=== PATIENT | male | born 1950 | race Caucasian/White ===

== ENCOUNTER 2017-04-25 09:18 | Day surgery (SDC) | payer MEDICARE ==
--- NOTE | 2017-04-25 07:01 | History and Physical Report ---
DATE: 04/24/2017. CHIEF COMPLAINT AND HISTORY OF CHIEF COMPLAINT: This is a patient with a postcervical laminectomy radiculitis. She has a spinal opioid infusion system infusing hydromorphone. The current base rate is 1.5 mg a day. The pump at the right posterior gluteal margin was identified, and the incisional site is intact. Over the last number of refills and reprogrammings, battery depletion has been identified. He is here for battery replacement on an outpatient basis. No infusion characteristic changes will be made. PAST MEDICAL HISTORY: Cardiovascular disease, urologic disease, hypertension. MEDICATIONS ON ADMISSION: To be provided. ALLERGIES: To be provided. REVIEW OF SYSTEMS: The patient is appropriate and in no acute distress. The remainder of the systems review is noncontributory. PHYSICAL EXAMINATION: General: Height and weight are unavailable. Vital Signs: Unavailable. HEENT: Within normal limits. Lungs: Coarse and rhonchitic. Heart: Rapid. Musculoskeletal: Examination of the musculoskeletal system shows the pump pouch in the right posterior gluteal margin. The incisional site is intact. There is no breakdown or cellulitis. Lower extremity functionality and upper extremity functionality shows the underlying pain pattern to be a cervical radicular element showing both sensory and motor changes to the bilateral upper extremities. No current lower extremity complaints. Neurologic: Cranial nerves are intact. IMPRESSION: 1. POSTCERVICAL LAMINECTOMY SYNDROME, ICD-10 CODE M96.1. 2. CERVICAL RADICULITIS, ICD-10 CODE M54.13. 3. IMPLANTED SPINAL INFUSION SYSTEM WITH HYDROMORPHONE, BATTERY DEPLETION. PLAN: The patient is here on an outpatient basis for a pump battery change. This will be an outpatient procedure, and we will make no infusion changes. The catheter will be kept intact, although we may modify the catheter within the pump pouch if necessary. All of the potential risks, side effects, and complications have been reviewed and discussed. JOB NUMBER: [id number] cc: Ivory Packer
[~2017-04-25 09:18] MED LIST: ACETAMINOPHEN 1,000 MG/100 ML BTL IV ONE; CEFAZOLIN 2 Gram 2 GM/50 ML BAG IVPB ONE; FAMOTIDINE 20MG TABLET PO ONE; HYDROMORPHONE HCL 0.6 GM in 0.9 % SODIUM CHLORIDE 10ML VIA 20 ML IV ONE; HYDROMORPHONE PF 2MG/ML AMP 0.004 MG in 0.9 % SODIUM CHLORIDE 10ML VIA 0.998 ML IV ONE; MECLIZINE 25 MG TABLET PO ONE; METOCLOPRAMIDE 10 MG TABLET PO ONE
[2017-04-25] MEDS ORDERED: LIDOCAINE 2% MDV (20MG/ML) 20ML VIAL IV ONE (09:19)
[2017-04-25] MEDS ORDERED: CEFAZOLIN 1G VIAL IM ONE (09:19)
[2017-04-25] MEDS ORDERED: FENTANYL PF 100MCG/2ML VIAL IV ONE (09:19)
[2017-04-25] MEDS ORDERED: *PACU ONLY* KETAMINE HCL 10 MG/ML (20ML) VIAL IV ONE (09:19)
[2017-04-25] MEDS ORDERED: LIDOCAINE 1% W/EPI 1:200,000 MPF 30ML SQ ONE (09:19)
[2017-04-25] MEDS ORDERED: PROPOFOL 10 MG/ML VIAL IV ONE (09:19)
[2017-04-25] MEDS ORDERED: BUPIVACAINE 0.5% W/EPI MPF 30 ML VIAL IVP ONE (09:19)
[2017-04-25] MEDS ORDERED: MIDAZOLAM HCL 2MG/2ML VIAL IV ONE (09:19)
--- NOTE | 2017-04-25 20:39 | Operative Note - Ferro ---
DATE OF SURGERY: 04/25/17. PREOPERATIVE DIAGNOSES: 1. POST CERVICAL LAMINECTOMY SYNDROME, ICD-10 CODE = M96.1. 2. CERVICAL RADICULITIS, ICD-10 CODE = M54.13. 3. IMPLANTED SPINAL OPIUM INFUSION DEVICE HYDROMORPHONE WITH BATTERY DEPLETION. SURGERY: 1. INCISION, SUBCUTANEOUS DISSECTION, AND REMOVAL AND REPLACEMENT OF PROGRAMMABLE PUMP AT RIGHT POSTERIOR GLUTEAL MARGIN. 2. DIAGNOSTIC MYELOGRAPHY WITH RADIOLOGIC SUPERVISION AND INTERPRETATION. 3. PROGRAMMING OF PUMP TO DELIVER BY CONTINUOUS INFUSION AND FLEX DOSE HYDROMORPHONE AT 4.5 MG PER DAY. SURGEON: YAZMIN POLANCO D.O. ANESTHESIA: LOCAL SEDATION. ANESTHESIA PROVIDER: BELL GARG CRNA. INDICATIONS: This patient presents with a history of intractable post cervical laminectomy syndrome with a spinal opioid infusion device infusing Hydromorphone. Over the last time of reprogrammings and refills, a battery depletion was identified. He is here for replacement of battery. SURGERY: Intravenous line, vital sign monitoring, IV sedation, prepped and draped, sterile technique. Under imaging, with the patient prone, sterile prep, sterile technique at the right posterior superior gluteal margin. Previous incision identified, infiltrated with local. Incision made into the subcu and dissection was conducted to the pump. The Dacron sleeve was opened. The pump was exteriorized. The connection to the internal catheter was . Prior to the separation, a #24 gauge Valdes needle was inserted into the access port and 1 mL of catheter contents was aspirated clearing the catheter of opioid and CSF mixture. With the pump from the catheter, the pouch was inspected. The catheter was not coiled, kinked, or imbedded in scar tissue. It was felt that leaving the catheter without revision of the catheter was appropriate. New pump prefilled with Hydromorphone 30 per mL was placed onto the field and then interfaced with the internal catheter. Antibiotic irrigation and Bovie for hemostasis. The pump was placed in the existing pouch, found to be tight relative to the new pump. The inferior margin of the pouch was then revised and opened to accommodate the new pump. A nonabsorbable suture was placed into the sheath and through the lateral eyelet of the pump to secure the pump into the pouch. With the pump placed into the pouch, the catheter was checked to ensure no kink. A #24 gauge Valdes needle was inserted back into the access port and then under imaging, contrast injected. The resulting myelogram with radiologic with radiologic supervision and interpretation showed contrast moving through the pump without problems. The pump catheter connection was visualized. There were no kinks or leaks. The tip of the catheter approximating C7-T1 was noted with myelogram flow characteristics identified. Appropriate flow confirmed. Catheter functionality confirmed. The incision was then closed with Vicryl for facia, running subcuticular Vicryl for skin. Dermabond closure over the incision. The pump was then programmed to deliver continuous infusion at its preexisting rate at 4.719 mg a day, flex dose. All alarm values were reset. He was transported to the Recovery Room stable showing no side-effects from the procedure or the sedation. He was monitored until stable and then prepared for discharge. DISCHARGE INSTRUCTIONS: 1. The site is to remain clean and dry. No showering or bathing, although he can shower in 24 hours. The Dermabond is water impermeable. He should not sit in water or soak in a tub. 2. Standard medications will be resumed. Levaquin, the antibiotic, 500 mg once a day for 14 days. 3. Spinal opioid side-effects; respiratory depression, nausea, vomiting, constipation, urinary retention, lightheadedness, or rash have all been discussed and reviewed. If it happens, contact the Clinic or go to the local Emergency Room. All other instructions provided, numbers to contact if problems given. He will contacted by the office in 48 hours to set up an appointment to return to the office in 7-10 days to evaluate the site. Until that period of time, his activities should stay controlled. Limit bend, lift, push, pull. He should not pull or remove the Dermabond closure. All other instructions provided , numbers to contact if problems given. He was then discharged. cc: Dr. Alexander JOB NUMBER: [id number] MTDD
== END 2017-04-25 12:05 | disposition home or self-care (01) ==
LOC: SUR 09:18
PROVIDERS: ATTEND Pain Medicine Interventional Pain Medicine
DX: M96.1 Postlaminectomy syndrome, not elsewhere classified (principal); M54.13 Radiculopathy, cervicothoracic region; I10 Essential (primary) hypertension
CPT/HCPCS: 62362; 00300; 62367; 85002; Q9967; J3010; J0690; J1170